=== PATIENT | male | born 1950 | race Caucasian/White ===

== ENCOUNTER 2020-06-07 07:48 | Emergency (ER) | payer MEDICARE, MEDICAID ==
[~2020-06-07] VITALS: Ht 172.7 cm; Wt 88.0 kg
[2020-06-07] MEDS ORDERED: GABA-1216 PO (08:24)
[2020-06-07] MEDS ORDERED: QUET25TA PO (08:25)
[2020-06-07] MEDS ORDERED: KETOROLAC TROMETHAMINE 30 MG/ML VIAL IVP ONE (08:30)
[2020-06-07] MEDS ORDERED: MORPHINE SULFATE 2 MG/ML SYRINGE IVP ONE (08:30)
[2020-06-07 11:12] VITALS: BP 106/70
== END 2020-06-07 11:27 | disposition home or self-care (01) ==
LOC: EMS 07:48
DX: S09.90XA Unspecified injury of head, initial encounter (principal); S49.91XA Unspecified injury of right shoulder and upper arm, initial encounter; K11.8 Other diseases of salivary glands; M54.5 Low back pain; M54.2 Cervicalgia; E11.9 Type 2 diabetes mellitus without complications; I10 Essential (primary) hypertension; F17.210 Nicotine dependence, cigarettes, uncomplicated; Z91.018 Allergy to other foods; W18.09XA Striking against other object with subsequent fall, initial encounter; Y93.89 Activity, other specified; Y92.89 Other specified places as the place of occurrence of the external cause; Y99.8 Other external cause status
CPT/HCPCS: 70450; 72100; 72125; 73030; 96374; 96375; 99285; J1885; J2270

== ENCOUNTER 2023-02-16 03:05 | Inpatient (IN) | payer MEDICARE, MEDICAID ==
[~2023-02-16] VITALS: Ht 172.7 cm; Wt 86.5 kg
[~2023-02-16 03:05] MED LIST: ALBU18HF12 IH; AMLO-258 PO; ATOR40TA71 PO; BENZ-227 PO; CHOL200059 PO; FLUT1BLS19 IH; GABA600T10 PO; GLIP5TAB15 PO; ICOS1CAP PO; LEVO-72 PO; OXYB5TAB20 PO; PRED-554 PO; QUET400T13 PO; VENL100T4 PO
[2023-02-16] MEDS ORDERED: MethylPREDNISolone SOD SUCC 125 MG/2 ML VIAL IVP ONE (03:15)
[2023-02-16] MEDS ORDERED: IPRATROPIUM BROMIDE 0.5 MG/2.5 ML NEB SOLUTION NEB ONE (03:15)
[2023-02-16] MEDS ORDERED: ALBUTEROL SULFATE 2.5 MG/0.5 ML 5 ML NEB SOLUTION NEB ONE (03:15)
[2023-02-16 03:30] VITALS: PULSE 98; RESP 21; O2SAT 94; O2SAT 96
[2023-02-16 03:30] LABS: COVID AG,FIA SOURCE NASAL SWAB
[2023-02-16 03:44] VITALS: PULSE 98; RESP 21; O2SAT 94
[2023-02-16 03:50] LABS: INFLUENZA TYPE A NEGATIVE FOR TYPE A (NEGATIVE); INFLUENZA TYPE B NEGATIVE FOR TYPE B (NEGATIVE); SARS-COV2 (COVID) ANTIGEN,FIA Negative (Negative)
[2023-02-16 04:45] LABS: BASOPHILS % (AUTO) 0.5 % (0.0-2.0); EOSINOPHILS % (AUTO) 1.6 % (1.0-6.0); HEMATOCRIT 38.9 % (41-53); HEMOGLOBIN 13.1 g/dL (13.5-17.5); LYMPHOCYTES # (AUTO) 1.1 K/uL (1.0-4.8); LYMPHOCYTES % (AUTO) 22.3 % (22.0-44.0); MEAN CORPUSCULAR HGB CONC 33.8 G/dL (31.0-37.0); MEAN CORPUSCULAR VOLUME 95 fL (80-100); MONOCYTES # (AUTO) 0.3 K/uL (0.1-1.0); MONOCYTES % (AUTO) 5.5 % (2.0-9.0); NEUTROPHILS # (AUTO) 3.6 K/uL (1.8-7.7); NEUTROPHILS % (AUTO) 70.1 % (40.0-70.0); PLATELET COUNT (AUTO) 174 K/uL (150-450); RED BLOOD CELL COUNT(AUTO) 4.11 MIL/uL (4.50-5.90); RED CELL DISTRIBUTION WIDTH 15.3 % (11.5-14.5); WHITE BLOOD COUNT (AUTO) 5.2 K/uL (4.5-11.0)
[2023-02-16 04:48] LABS: APPEARANCE,URINE HAZY (CLEAR); BILIRUBIN,URINE NEGATIVE (NEGATIVE); COLOR,URINE LIGHT YELLOW (YELLOW); GLUCOSE, URINE (UA) NEGATIVE (NEGATIVE); KETONES,URINE NEGATIVE (NEGATIVE); LEUKOCYTE ESTERASE ,URINE NEGATIVE (NEGATIVE); NITRATE,URINE NEGATIVE (NEGATIVE); OCCULT BLOOD,URINE NEGATIVE (NEGATIVE); PH,URINE 7.5 (5.0-8.0); PROTEIN,URINE TRACE mg/dL (NEGATIVE); SPECIFIC GRAVITIY, URINE 1.011 (1.003-1.030); UROBILINOGEN,URINE <=1.0 mg/dL (<=1.0)
[2023-02-16 04:57] LABS: ANION GAP 1 mmol/L (8-16); CALCIUM, TOTAL 8.6 mg/dL (8.8-10.5); CARBON DIOXIDE 39 mmol/L (22-29); CHLORIDE 101 mmol/L (98-107); CREATININE 0.82 mg/dL (0.60-1.30); GLOMERULAR FILTR. RATE CALC > 60 mL/min (>60); GLUCOSE,RANDOM 159 mg/dL (70-110); POTASSIUM 3.5 mmol/L (3.5-5.1); SODIUM SERUM 141 mmol/L (136-145); UREA NITROGEN, BLOOD 8 mg/dL (7-18)
[2023-02-16 04:58] LABS: PROTHROMBIN TIME 10.9 SEC (9.4-11.6)
[2023-02-16 05:01] LABS: TROPONIN I-HIGH SENSITIVITY 24 ng/L (<76)
[2023-02-16 05:18] LABS: ALANINE AMINOTRANSFERASE 32 U/L (12-78); ALKALINE PHOSPHATASE 60 U/L (46-116); ASPARTATE AMINOTRANSFERASE 23 U/L (15-37); BILIRUBIN,TOTAL 0.3 mg/dL (0.1-1.0); CREATINE KINASE, TOTAL ONLY 140 U/L (39-308); TOTAL PROTEIN, SERUM 6.7 g/dL (6.4-8.2)
[2023-02-16 05:24] LABS: B-TYPE NATRIURETIC PEPTIDE 262 pg/mL (0-100)
[2023-02-16] MEDS ORDERED: ALBUTEROL SULFATE 2.5 MG/0.5 ML NEB SOLUTION NEB PRN (05:30)
[2023-02-16] MEDS ORDERED: IPRATROPIUM BROMIDE 0.5 MG/2.5 ML NEB SOLUTION NEB PRN (05:30)
[2023-02-16] MEDS ORDERED: ONDANSETRON HCL 4 MG/2 ML VIAL IVP PRN (05:30)
[2023-02-16] MEDS ORDERED: FUROSEMIDE 20 MG/2 ML VIAL IVP ONE (07:15)
[2023-02-16] MEDS ORDERED: MELATONIN 3 MG TABLET PO ONE (08:00)
[2023-02-16] MEDS: DOCUSATE SODIUM 100 MG CAPSULE PO SCH ×2 (09:00→21:00)
[2023-02-16] MEDS ORDERED: SODIUM CHLORIDE 0.9% 500 ML IV ONE (09:29)
[2023-02-16 09:57] LABS: TROPONIN I-HIGH SENSITIVITY 19 ng/L (<76)
[2023-02-16] MEDS: FUROSEMIDE 20 MG/2 ML VIAL IVP SCH ×2 (10:42→16:35)
[2023-02-16] MEDS: ENOXAPARIN SODIUM 40 MG/0.4 ML PF SYRINGE SQ SCH (10:42)
[2023-02-16] MEDS: AZITHROMYCIN 500 MG/NS 250 ML IV SCH (10:43)
[2023-02-16] MEDS: CefTRIAXone 1 GM/DEXTROSE 50 ML IV SCH (10:44)
[2023-02-16 13:20] VITALS: BP 146/94; PULSE 103; RESP 17; TEMP 98.6
[2023-02-16 14:09] LABS: TROPONIN I-HIGH SENSITIVITY 15 ng/L (<76)
[2023-02-16] MEDS ORDERED: HydrOXYzine HCL 25 MG TABLET PO ONE (14:30)
[2023-02-16] MEDS: NICOTINE 21 MG/24 HOUR PATCH TD SCH (16:35)
[2023-02-16 16:36] VITALS: BP 135/97; PULSE 102; RESP 17; TEMP 98.4
[2023-02-16 19:55] VITALS: BP 151/68; PULSE 101; RESP 19; TEMP 98.1
[2023-02-16] MEDS ORDERED: INFLUENZA VIRUS VACCINE QVS 2023-24 (6MO+)/PF 60 MCG/0.5 ML SYRINGE IM. ONE (20:00)
[2023-02-16 21:27] LABS: GLUCOMETER DEV NAME(LOC) 5N.2C; GLUCOSE,POINT OF CARE 178 MG/DL (70-110)
[2023-02-16] MEDS: ACETAMINOPHEN 325 MG TABLET PO PRN ×2 (23:22→23:34)
[2023-02-16] MEDS: MELATONIN 3 MG TABLET PO PRN ×2 (23:22→23:38)
[2023-02-17 00:17] VITALS: BP 149/104; PULSE 101; RESP 19; TEMP 98
[2023-02-17] MEDS: LORazepam 2 MG/ML VIAL IVP ONE ×2 (05:36→06:20)
[2023-02-17 06:36] LABS: BASOPHILS % (AUTO) 0.1 % (0.0-2.0); EOSINOPHILS % (AUTO) 0.1 % (1.0-6.0); HEMATOCRIT 41.6 % (41-53); HEMOGLOBIN 14.3 g/dL (13.5-17.5); LYMPHOCYTES # (AUTO) 1.6 K/uL (1.0-4.8); LYMPHOCYTES % (AUTO) 19.3 % (22.0-44.0); MEAN CORPUSCULAR HEMOGLOBIN 32.3 pg (26.0-34.0); MEAN CORPUSCULAR HGB CONC 34.3 G/dL (31.0-37.0); MEAN CORPUSCULAR VOLUME 94 fL (80-100); MONOCYTES # (AUTO) 0.5 K/uL (0.1-1.0); MONOCYTES % (AUTO) 6.5 % (2.0-9.0); PLATELET COUNT (AUTO) 211 K/uL (150-450); RED BLOOD CELL COUNT(AUTO) 4.41 MIL/uL (4.50-5.90); WHITE BLOOD COUNT (AUTO) 8.1 K/uL (4.5-11.0)
[2023-02-17 06:38] VITALS: BP 154/98; PULSE 92; RESP 19; TEMP 98.2
[2023-02-17 07:56] LABS: ANION GAP 8 mmol/L (8-16); CALCIUM, TOTAL 8.8 mg/dL (8.8-10.5); CARBON DIOXIDE 34 mmol/L (22-29); CHLORIDE 98 mmol/L (98-107); GLOMERULAR FILTR. RATE CALC > 60 mL/min (>60); GLUCOSE,RANDOM 119 mg/dL (70-110); POTASSIUM 3.6 mmol/L (3.5-5.1); SODIUM SERUM 140 mmol/L (136-145); UREA NITROGEN, BLOOD 11 mg/dL (7-18)
[2023-02-17] MEDS: ENOXAPARIN SODIUM 40 MG/0.4 ML PF SYRINGE SQ SCH (08:32)
[2023-02-17] MEDS: NICOTINE 21 MG/24 HOUR PATCH TD SCH (08:33)
[2023-02-17] MEDS: DOCUSATE SODIUM 100 MG CAPSULE PO SCH ×2 (08:33→21:00)
[2023-02-17] MEDS: FUROSEMIDE 20 MG TABLET PO SCH (08:34)
[2023-02-17] MEDS: METOPROLOL SUCCINATE 25 MG ER TABLET PO SCH (08:34)
[2023-02-17] MEDS: AZITHROMYCIN 500 MG/NS 250 ML IV SCH ×2 (08:43→09:24)
[2023-02-17] MEDS ORDERED: FUROSEMIDE 20 MG/2 ML VIAL IVP SCH (09:00)
[2023-02-17] MEDS ORDERED: METOPROLOL SUCCINATE 25 MG ER TABLET PO SCH (09:00)
[2023-02-17] MEDS: CefTRIAXone 1 GM/DEXTROSE 50 ML IV SCH (09:23)
[2023-02-17 20:26] VITALS: BP 135/79; PULSE 94; RESP 20; TEMP 99.3
[2023-02-17 20:36] LABS: GLUCOMETER DEV NAME(LOC) 5N.2C; GLUCOSE,POINT OF CARE 122 MG/DL (70-110)
[2023-02-17] MEDS: MELATONIN 3 MG TABLET PO PRN (23:01)
[2023-02-18] VITALS (10 sets, daily range): BP systolic 113–150; BP diastolic 66–100; PULSE 18–93; RESP 18–22; TEMP 97.4–98.5; O2SAT 95–98
[2023-02-18 03:07] LABS: HEPATITIS C AB (EIA) Non Reactive (Non Reactive)
[2023-02-18] MEDS: ACETAMINOPHEN 325 MG TABLET PO PRN (05:24)
[2023-02-18] MEDS: CefTRIAXone 1 GM/DEXTROSE 50 ML IV SCH (08:38)
[2023-02-18] MEDS: DOCUSATE SODIUM 100 MG CAPSULE PO SCH ×2 (08:43→20:55)
[2023-02-18] MEDS: METOPROLOL SUCCINATE 25 MG ER TABLET PO SCH (08:43)
[2023-02-18] MEDS: FUROSEMIDE 20 MG TABLET PO SCH (08:43)
[2023-02-18] MEDS: AZITHROMYCIN 500 MG/NS 250 ML IV SCH (08:43)
[2023-02-18] MEDS: ENOXAPARIN SODIUM 40 MG/0.4 ML PF SYRINGE SQ SCH (08:44)
[2023-02-18] MEDS: NICOTINE 21 MG/24 HOUR PATCH TD SCH (08:44)
[2023-02-18] MEDS ORDERED: IPRATROPIUM BROMIDE 0.5 MG/2.5 ML NEB SOLUTION NEB PRN (13:30)
[2023-02-18] MEDS ORDERED: ALBUTEROL SULFATE 2.5 MG/0.5 ML NEB SOLUTION NEB PRN (13:30)
[2023-02-18] MEDS ORDERED: ACETAMINOPHEN 325 MG TABLET PO PRN (13:30)
[2023-02-18] MEDS ORDERED: OxyCODONE HCL/ACETAMINOPHEN 5-325 MG TABLET PO PRN (13:30)
[2023-02-18] MEDS ORDERED: ZOLPIDEM TARTRATE 5 MG TABLET PO PRN (13:30)
[2023-02-18] MEDS ORDERED: MAGNESIUM HYDROXIDE SUSPENSION 30 ML UDCUP PO PRN (13:30)
[2023-02-18] MEDS ORDERED: [UNRECOGNIZED DRUG - OTHER] PO SCH (13:30)
[2023-02-18] MEDS ORDERED: MORPHINE SULFATE 2 MG/ML SYRINGE IVP PRN (13:30)
[2023-02-18] MEDS ORDERED: BISACODYL 10 MG RECTAL RECTAL SUPPOSITORY PR PRN (13:30)
[2023-02-18] MEDS: GABAPENTIN 300 MG CAPSULE PO SCH ×2 (14:06→20:58)
[2023-02-18] MEDS: OXYBUTYNIN CHLORIDE 5 MG TABLET PO SCH (14:37)
[2023-02-18] MEDS: VENLAFAXINE HCL 50 MG TABLET PO SCH (14:37)
[2023-02-18] MEDS: GlipiZIDE 5 MG TABLET PO SCH (17:44)
[2023-02-18] MEDS: ALBUTEROL SULFATE 2.5 MG/0.5 ML NEB SOLUTION NEB SCH ×2 (19:10→23:34)
[2023-02-18] MEDS: IPRATROPIUM BROMIDE 0.5 MG/2.5 ML NEB SOLUTION NEB SCH ×2 (19:10→23:34)
[2023-02-18] MEDS: BENZONATATE 100 MG CAPSULE PO SCH (20:57)
[2023-02-18] MEDS ORDERED: QUEtiapine FUMARATE 200 MG TABLET PO SCH (21:00)
[2023-02-19] VITALS (11 sets, daily range): BP systolic 100–122; BP diastolic 58–85; PULSE 73–89; RESP 16–19; TEMP 97.9–98.9; O2SAT 95–97
[2023-02-19] MEDS: ALBUTEROL SULFATE 2.5 MG/0.5 ML NEB SOLUTION NEB SCH ×5 (02:36→19:00)
[2023-02-19] MEDS: IPRATROPIUM BROMIDE 0.5 MG/2.5 ML NEB SOLUTION NEB SCH ×5 (02:36→19:00)
[2023-02-19] MEDS: GlipiZIDE 5 MG TABLET PO SCH ×2 (06:22→18:27)
[2023-02-19] MEDS: ENOXAPARIN SODIUM 40 MG/0.4 ML PF SYRINGE SQ SCH (08:28)
[2023-02-19] MEDS: CefTRIAXone 1 GM/DEXTROSE 50 ML IV SCH (08:28)
[2023-02-19] MEDS: NICOTINE 21 MG/24 HOUR PATCH TD SCH (08:29)
[2023-02-19] MEDS: OXYBUTYNIN CHLORIDE 5 MG TABLET PO SCH (08:30)
[2023-02-19] MEDS: VENLAFAXINE HCL 50 MG TABLET PO SCH (08:30)
[2023-02-19] MEDS: FUROSEMIDE 20 MG TABLET PO SCH (08:30)
[2023-02-19] MEDS: METOPROLOL SUCCINATE 25 MG ER TABLET PO SCH (08:31)
[2023-02-19] MEDS: BENZONATATE 100 MG CAPSULE PO SCH (08:31)
[2023-02-19] MEDS: GABAPENTIN 300 MG CAPSULE PO SCH (08:31)
[2023-02-19] MEDS: DOCUSATE SODIUM 100 MG CAPSULE PO SCH (09:00)
[2023-02-19] MEDS ORDERED: AmLODIPine BESYLATE 10 MG TABLET PO SCH (09:00)
[2023-02-19] MEDS ORDERED: ATORVASTATIN CALCIUM 40 MG TABLET PO SCH (09:00)
[2023-02-19] MEDS ORDERED: CHOLECALCIFEROL (VIT D3) 2,000 UNITS [50 MCG] TABLET PO SCH (09:00)
[2023-02-19] MEDS ORDERED: PredniSONE 20 MG TABLET PO SCH (09:00)
[2023-02-19] MEDS ORDERED: PANTOPRAZOLE SODIUM 40 MG DR TABLET PO SCH (09:00)
[2023-02-19] MEDS: AZITHROMYCIN 500 MG/NS 250 ML IV SCH (09:54)
[2023-02-19] MEDS ORDERED: AMOX1TAB16 PO (14:39)
[2023-02-19] MEDS ORDERED: PRED-729 PO (14:39)
[2023-02-19] MEDS ORDERED: METO25XL PO (14:39)
== END 2023-02-19 19:00 | disposition home or self-care (01) | DRG 189 ==
LOC: EMS 03:06 → 5N 05:29
PROVIDERS: ADMIT Internal Medicine; ATTEND Internal Medicine
PROC: 5A09357 Assistance with Respiratory Ventilation, Less than 24 Consecutive Hours, Continuous Positive Airway Pressure (ICD-10-PCS; principal; 2023-02-16)
DX: J96.21 Acute and chronic respiratory failure with hypoxia (principal); J18.9 Pneumonia, unspecified organism; I50.31 Acute diastolic (congestive) heart failure; J44.1 Chronic obstructive pulmonary disease with (acute) exacerbation; E87.3 Alkalosis; J44.0 Chronic obstructive pulmonary disease with (acute) lower respiratory infection; Z20.822 Contact with and (suspected) exposure to COVID-19; F17.210 Nicotine dependence, cigarettes, uncomplicated; E78.00 Pure hypercholesterolemia, unspecified; E11.65 Type 2 diabetes mellitus with hyperglycemia; I11.0 Hypertensive heart disease with heart failure; I35.0 Nonrheumatic aortic (valve) stenosis; Z91.018 Allergy to other foods; Z79.899 Other long term (current) drug therapy
CPT/HCPCS: 71045; 80048; 80053; 81003; 82550; 82962; 83735; 83880; 84484; 85025; 85610; 85730; 86803; 87340; 87804; 92610; 93005; 93306; 94640; 94660; 99291; J0456; J0696; J1650; J1940; J2060; J2930; J7040; Q9967; 36415-L1; 36415-TC; J7613

== ENCOUNTER 2024-06-05 23:39 | Emergency (ER) | payer MEDICARE, MEDICAID ==
[~2024-06-05] VITALS: Ht 170.2 cm; Wt 77.3 kg
[~2024-06-05 23:39] MED LIST changes: +AMOX-457 PO; +GABA-1404 PO; -GABA600T10 PO; -LEVO-72 PO; +METO25XL PO; +PRED-729 PO
[2024-06-06 00:51] VITALS: BP 158/99; PULSE 60; RESP 20; TEMP 98.4; O2SAT 95
[2024-06-06] MEDS ORDERED: QUET200T PO (07:45)
[2024-06-06] MEDS: HydrOXYzine HCL 25 MG TABLET PO ONE (07:47)
== END 2024-06-06 08:18 | disposition home or self-care (01) ==
LOC: EMS 23:39
DX: G47.00 Insomnia, unspecified (principal); Z76.0 Encounter for issue of repeat prescription; J44.9 Chronic obstructive pulmonary disease, unspecified; E11.9 Type 2 diabetes mellitus without complications; I10 Essential (primary) hypertension; E78.00 Pure hypercholesterolemia, unspecified; F20.9 Schizophrenia, unspecified; F17.210 Nicotine dependence, cigarettes, uncomplicated; Z79.51 Long term (current) use of inhaled steroids; Z79.52 Long term (current) use of systemic steroids; Z79.899 Other long term (current) drug therapy
CPT/HCPCS: 99283